=== PATIENT | male | born 1950 | race Caucasian/White ===

== ENCOUNTER 2020-05-12 10:20 | Outpatient (CLI) | payer OTHER, SELFPAY ==
--- NOTE | 2020-05-12 10:34 | XRR_ITS ---
PROCEDURE INFORMATION: Exam: XR Left Hip with Pelvis when Performed Exam date and time: 05/12/2020 11:26 AM Age: 69 years old Clinical indication: Hip pain; Left hip; Prior surgery; Additional info: L hip pain/oa TECHNIQUE: Imaging protocol: XR Left hip with pelvis when performed. Views: 2 or 3 views. COMPARISON: No relevant prior studies available. FINDINGS: Bones/joints: Unremarkable. No acute fracture. Soft tissues: Unremarkable. XR/XR hip LT 2-3V wo/w pel* [id number] IMPRESSION: No acute findings.
--- NOTE | 2020-05-12 10:34 | XRR_ITS ---
PROCEDURE INFORMATION: Exam: XR Left Knee Exam date and time: 05/12/2020 11:28 AM Age: 69 years old Clinical indication: Pain; Knee; Bilateral; Prior surgery; Additional info: Indra knee pain TECHNIQUE: Imaging protocol: XR Left knee. Views: 3 views. COMPARISON: No relevant prior studies available. FINDINGS: Bones/joints: There is no evidence for acute fracture or malalignment. Soft tissues: Normal. XR/XR knee LT 3V* [id number] IMPRESSION: No acute findings.
--- NOTE | 2020-05-12 10:34 | XRR_ITS ---
PROCEDURE INFORMATION: Exam: XR Right Knee Exam date and time: 05/12/2020 11:30 AM Age: 69 years old Clinical indication: Pain; Knee; Bilateral; Prior surgery; Additional info: Indra knee pain TECHNIQUE: Imaging protocol: XR Right knee. Views: 3 views. COMPARISON: No relevant prior studies available. FINDINGS: Bones/joints: There is no evidence for acute fracture or malalignment. Soft tissues: Normal. XR/XR knee RT 3V* [id number] IMPRESSION: No acute findings.
== END 2020-05-12 10:21 | disposition home or self-care (01) ==
LOC: RAD 10:28
PROVIDERS: Visit Provider Nurse Practitioner Family
DX: M25.561 Pain in right knee (principal); M25.562 Pain in left knee; M25.552 Pain in left hip
CPT/HCPCS: 73502; 73562

== ENCOUNTER → 2020-09-29 15:29 | Outpatient (BNVA) | payer OTHER, SELFPAY | PROVIDERS: Visit Provider Urology | DX: N13.8 Other obstructive and reflux uropathy (principal); N40.1 Benign prostatic hyperplasia with lower urinary tract symptoms; N39.9 Disorder of urinary system, unspecified; Z12.5 Encounter for screening for malignant neoplasm of prostate | CPT/HCPCS: 81003; G0103 ==

== ENCOUNTER 2021-04-12 07:39 | Outpatient (CLI) | payer OTHER, SELFPAY ==
--- NOTE | 2021-04-12 07:55 | XRR_ITS ---
PROCEDURE INFORMATION: Exam: XR Lumbosacral Spine Exam date and time: 04/12/2021 7:55 AM Age: 70 years old Clinical indication: Low back pain; Patient HX: Lower back pain from lt lateral side to center, and down to lt hip for a couple months; Additional info: L hip pain TECHNIQUE: Imaging protocol: XR of the lumbosacral spine. Views: 2 or 3 views. COMPARISON: CR XR hip LT 2-3V wo/w pel* [id number] 05/12/2020 11:23 AM FINDINGS: Bones/joints: No fracture or other acute bone or joint abnormalities are seen. Chronic degenerative changes are present with osteophyte formation, sclerosis and mild disc space narrowing. There is no significant malalignment. Soft tissues: Unremarkable. XR/XR lumbar spine 2-3V* [id number] IMPRESSION: Moderate DJD. No acute abnormality.
== END 2021-04-12 07:40 | disposition home or self-care (01) ==
LOC: RAD 07:50
PROVIDERS: Visit Provider Nurse Practitioner Family
DX: M25.552 Pain in left hip (principal); M47.816 Spondylosis without myelopathy or radiculopathy, lumbar region
CPT/HCPCS: 72100

== ENCOUNTER 2021-12-06 11:03 | Outpatient (CLI) | payer OTHER, SELFPAY ==
--- NOTE | 2021-12-06 11:44 | XRR_ITS ---
PROCEDURE INFORMATION: Exam: XR Left Ankle Exam date and time: 12/06/2021 11:44 AM Age: 71 years old Clinical indication: Pain and injury or trauma; Fall; Blunt trauma; Ankle; Left; Additional info: Pain L lower ext/fall TECHNIQUE: Imaging protocol: XR Left ankle. Views: 3 or more views. COMPARISON: CR XR knee LT 3V* [id number] 05/12/2020 11:26 AM FINDINGS: Bones/joints: Osseous structures are intact. Negative for fracture. Joint spaces are preserved. Soft tissues: Normal. XR/XR ankle LT min 3V* [id number] IMPRESSION: No acute findings.
--- NOTE | 2021-12-06 11:44 | XRR_ITS ---
PROCEDURE INFORMATION: Exam: XR Left Knee Exam date and time: 12/06/2021 11:44 AM Age: 71 years old Clinical indication: Pain and injury or trauma; Fall; Blunt trauma; Knee; Left; Additional info: Pain L lower ext/fall TECHNIQUE: Imaging protocol: XR Left knee. Views: 3 views. COMPARISON: CR XR knee LT 3V* [id number] 05/12/2020 11:26 AM FINDINGS: Bones/joints: Osseous structures are intact. Negative for fracture. Joint spaces are preserved. Soft tissues: Normal. XR/XR knee LT 3V* [id number] IMPRESSION: No acute findings.
--- NOTE | 2021-12-06 11:44 | XRR_ITS ---
PROCEDURE INFORMATION: Exam: XR Left Tibia and Fibula Exam date and time: 12/06/2021 11:44 AM Age: 71 years old Clinical indication: Pain and injury or trauma; Fall; Blunt trauma; Lower leg; Left; Additional info: Pain L lower ext/fall TECHNIQUE: Imaging protocol: XR Left tibia and fibula. Views: 2 views. COMPARISON: CR XR knee LT 3V* [id number] 05/12/2020 11:26 AM FINDINGS: Bones/joints: Tibia and fibula are intact. Negative for fracture. Soft tissues: Normal. XR/XR tibia fibula LT 2V [id number] IMPRESSION: No acute findings.
--- NOTE | 2021-12-06 11:44 | XRR_ITS ---
PROCEDURE INFORMATION: Exam: XR Left Foot Exam date and time: 12/06/2021 11:44 AM Age: 71 years old Clinical indication: Pain and injury or trauma; Fall; Blunt trauma; Foot; Left; Additional info: Pain L lower ext/fall TECHNIQUE: Imaging protocol: XR Left foot. Views: 3 or more views. COMPARISON: CR XR knee LT 3V* [id number] 05/12/2020 11:26 AM FINDINGS: Bones/joints: Osseous structures are intact. Negative for fracture. Joint spaces are preserved. Soft tissues: Normal. XR/XR foot LT min 3V* [id number] IMPRESSION: No acute findings.
== END 2021-12-06 11:04 | disposition home or self-care (01) ==
PROVIDERS: PCP Nurse Practitioner Family; Visit Provider Nurse Practitioner Family
DX: M79.662 Pain in left lower leg (principal); M25.562 Pain in left knee; W19.XXXA Unspecified fall, initial encounter
CPT/HCPCS: 73562; 73590; 73610; 73630

== ENCOUNTER 2021-12-15 11:29 | Emergency (ER) | payer OTHER, SELFPAY ==
[2021-12-15 11:30] VITALS: BP 83/51; PULSE 51; O2SAT 94; BMI 25.1
[2021-12-15 11:38] VITALS: BP 83/51; PULSE 50; RESP 16; O2SAT 95
--- NOTE | 2021-12-15 11:38 | ECG_ITS ---
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 Measurements Intervals [place] Rate: 48 P: 34 SC: 236 QRS: 10 QRSD: 90 T: 47 QT: 465 QTc: 417 Interpretive Statements SINUS BRADYCARDIA WITH FIRST DEGREE AV BLOCK WARNING: DATA QUALITY MAY AFFECT INTERPRETATION No previous ECG available for comparison Electronically Signed On 12-15-2021 21:48:00 CDT by Rossi Rojas M.D. [id number]
--- NOTE | 2021-12-15 11:56 | CTR_ITS ---
PROCEDURE INFORMATION: Exam: CT Angiography Head With Contrast, Arteriography Exam date and time: 12/15/2021 2:17 PM Age: 71 years old Clinical indication: Syncope and collapse TECHNIQUE: Imaging protocol: Computed tomography angiography of the head with contrast. Exam focused on the arteries. 3D rendering (Not supervised by radiologist): MIP and/or 3D reconstructed images were created by the technologist. Radiation optimization: All CT scans at this facility use at least one of these dose optimization techniques: automated exposure control; mA and/or kV adjustment per patient size (includes targeted exams where dose is matched to clinical indication); or iterative reconstruction. Contrast material: OMNI 350; Contrast volume: 95 ml; Contrast route: INTRAVENOUS (IV); COMPARISON: CT head wo con* [id number] 12/15/2021 2:14 PM RADIATION DOSE METRICS: Total DLP (mGy-cm): 2298.99 FINDINGS: ANTERIOR CIRCULATION: Right internal carotid artery: Unremarkable. Intracranial segment is patent with no significant stenosis. No aneurysm. Right middle cerebral artery: Unremarkable. No occlusion or significant stenosis. No aneurysm. Right anterior cerebral artery: Unremarkable. No occlusion or significant stenosis. No aneurysm. Left internal carotid artery: Unremarkable. Intracranial segment is patent with no significant stenosis. No aneurysm. Left middle cerebral artery: Unremarkable. No occlusion or significant stenosis. No aneurysm. Left anterior cerebral artery: Unremarkable. No occlusion or significant stenosis. No aneurysm. POSTERIOR CIRCULATION: Right vertebral artery: Unremarkable. No occlusion or significant stenosis. No aneurysm. Left vertebral artery: Unremarkable. No occlusion or significant stenosis. No aneurysm. Basilar artery: Unremarkable. No occlusion or significant stenosis. No aneurysm. Right posterior cerebral artery: Unremarkable. No occlusion or significant stenosis. No aneurysm. Left posterior cerebral artery: Unremarkable. No occlusion or significant stenosis. No aneurysm. Brain: See head CT Cerebral ventricles: No ventriculomegaly. Bones/joints: Unremarkable. No acute fracture. Soft tissues: Unremarkable. PROCEDURE INFORMATION: Exam: CT Angiography Neck With Contrast Exam date and time: 12/15/2021 2:17 PM Age: 71 years old Clinical indication: Syncope and collapse TECHNIQUE: Imaging protocol: Computed tomography angiography of the neck with contrast. 3D rendering (Not supervised by radiologist): MIP and/or 3D reconstructed images were created by the technologist. Radiation optimization: All CT scans at this facility use at least one of these dose optimization techniques: automated exposure control; mA and/or kV adjustment per patient size (includes targeted exams where dose is matched to clinical indication); or iterative reconstruction. Contrast material: OMNI 350; Contrast volume: 95 ml; Contrast route: INTRAVENOUS (IV); COMPARISON: CT head wo con* [id number] 12/15/2021 2:14 PM RADIATION DOSE METRICS: Total DLP (mGy-cm): 2298.99 FINDINGS: Right common carotid artery: No stenosis. No dissection or occlusion. Right internal carotid artery: No stenosis of the extracranial segment. No dissection or occlusion. Right external carotid artery: No occlusion or stenosis of the origin. Left common carotid artery: No stenosis. No dissection or occlusion. Left internal carotid artery: No stenosis of the extracranial segment. No dissection or occlusion. Left external carotid artery: No occlusion or stenosis of the origin. Right vertebral artery: No stenosis. No dissection or occlusion. Left vertebral artery: No stenosis. No dissection or occlusion. Soft tissues: Normal. No significant soft tissue swelling. Bones/joints: There is spondylosis and disc space narrowing from C4-C5 to C6 No acute fracture. CT/CT angio headneck* [id number] IMPRESSION: No intracranial stenosis or occlusion IMPRESSION: No carotid or vertebral artery stenosis REFERENCES: NASCET CRITERIA. The degree of internal carotid artery stenosis is based on NASCET criteria. Normal is no stenosis. Mild is less than 50% stenosis. Moderate is 50-69% stenosis. Severe is 70% to 99% stenosis. Total occlusion is no detectable patent lumen.
--- NOTE | 2021-12-15 11:57 | W.ED.GENADLT ---
HPI - General Adult General: Chief complaint: Syncope Stated complaint: SYNCOPE Time Seen by Provider: 12/15/21 11:38 History of Present Illness: Patient is a 71-year-old male with no known past medical history presents to the emergency after 2 episodes of syncope. Patient was getting his haircut in the barbershop sitting down when he suddenly passed out. No falls but patient has had another episode there. Patient denied any chest pain, shortness breath, palpitation, focal neurological weakness, facial droop prior to the episode of passing out. Patient never had syncope before. Patient denies any palpitation or lightheadedness, nausea/vomiting, diarrhea. Patient has no urinary complaints. No complaints fever/chills, cough, runny nose, or sore throat. Onset: 1 hr ago Duration:twice Location: [facility] Severity: moderate Associated symptoms: Deny chest pain, dyspnea, nausea, rash, palpitations or vomiting Review of Systems Const: Denies: fever(s) or chills Eyes: Denies: change in vision ENMT: Denies: mouth pain Card: Denies: chest pain or palpitations Resp: Denies: dyspnea or non-productive cough GI: Denies: abdominal pain, nausea, vomiting or diarrhea : Denies: dysuria Musc: Denies: extremity pain Skin/Breast: Denies: rash or new lesions Neuro: Denies: weakness in extremities Psych: Reports: other (Normal mood) Chuck/Lymph: Denies: easy bruising [facility] ED PFSH: Medical History (Updated 12/15/21 @ 15:21 by Rayna Rodriguez MD) BPH with obstruction/lower urinary tract symptoms History of recurrent UTI (urinary tract infection) Syncope Family History Father , AT AGE 86 UNKNOWN CAUSE No problems noted. Social History Smoking and tobacco status: never smoked Alcohol intake: never Adopted: No Caregiver/support person: No Lives independently: No Household members: spouse Marital status: Current occupational status: employed History of recent travel: No Current gender identity: Male Physical Exam Const: COMMON NORMALS: alert HENMT: COMMON NORMALS: atraumatic HEAD & SCALP: atraumatic MOUTH: moist mucous membranes not abnormal Eye: COMMON NORMALS: EOMs intact bilaterally and conjunctivae normal CONJUNCTIVA: Yes conjunctivae normal Neck/C-Spine: COMMON NORMALS: full ROM and supple Resp: COMMON NORMALS: normal respiratory effort and clear to auscultation bilaterally AUSCULTATION: clear to auscultation bilaterally Cardio: COMMON NORMALS: regular rate RATE: regular rate GI: COMMON NORMALS: Soft to palpation and non-tender PALPATION: Yes Soft to palpation Extremity: COMMON NORMALS: full ROM Neuro: SENSORIUM/ORIENTATION: Yes alert MOTOR EXAM: No Abnormal motor strength present and Other motor observations present (no focal motor deficits) OTHER: Mental status? Awake, alert, and oriented to self, year, month, location, and situation.? Following simple axial and appendicular commands.? Has appropriate fund of knowledge, comprehension, and insight.? Able to recall and understands pertinent aspects of medical history and current treatment status.? ? Language? Speech is fluent without word-finding difficulties.? Intact naming, expression, information receptionist, and repetition.? ? Cranial nerves? 2,3,4,6: PERRL, EOMI with no nystagmus. 5: Intact sensation to light touch, symmetric? 7: Smile symmetrical, no facial droop.? 8: Hearing grossly intact.? 9,10: Normal palate movement.? 11: Normal strength in trapezius bilaterally 12: Tongue protrudes midline.? ? Motor examination? Normal bulk & tone. Strength as follows (R/L): Delts (5/5), Biceps (5/5), Triceps (5/5), Wrist ext (5/5), hip flexors (5/5), plantarflexors (5/5), dorsiflexors (5/5). ? Sensation? Light Touch: Grossly intact and equal in upper and lower extremities bilaterally? Romberg: Negative.? Distal joint position sense intact ? Coordination? Gdkpna-wl-veda-finger movements intact without dysmetria or past-pointing.? Rapid fingertaps: preserved amplitude without decriment.? No tremor, myoclonus or truncal ataxia.? ? Gait/stance? Steady, normal narrow base gait with appropriate arm swing and turning.? Tandem gait without hesitation or loss of balance. Psych: COMMON NORMALS: speech normal SPEECH: Yes normal speech MOOD & AFFECT: Yes euthymic mood Course Vital Signs: Vital signs: Vital Signs Pulse Rate 64 12/15/21 16:12 Respiratory Rate 17 12/15/21 16:12 Blood Pressure 116/70 12/15/21 16:12 Pulse Oximetry 96 12/15/21 16:12 [facility] - General Adult Medical Decision Making 71-year-old male with no known past medical history presented to emergency room with 2 episodes of recurrent syncope. On arrival, patient is AAO x3, GCS 15, neuro exam is intact. Hemodynamically stable Work-up: CBC, BMP, troponin x2, EKG x2, CT head/CTA head & neck Intervention: IVF, athletic monitor, serial observation Troponin x2 within normal limit. CT head negative for any acute mass. CTA head and neck negative for dissection or or other acute neurological causes for syncope. While observed in the emergency room, patient not have any signs of dysrhythmia on the monitor. Patient has no signs of PVC. Patient received IVF in the emergency room reports feeling symptomatically improved. Patient has no lightheadedness or syncope upon standing today. Patient tolerated p.o. without any difficulty. Delta troponin <4. I performed shared decision-making with patient regarding admission versus discharge today, and patient prefers to be discharged. At 3:15pm, I have discussed concern that given patient's age and two episodes of syncope at rest, that he would better off getting admitted for telemetry and full evaluation of syncope. Upon hearing this, patient elects to go home with close follow up with Cardiology. I explained the risks of leaving the hospital today including lethal arrythemia, UT, strokes and even . Patient verbalizes understanding of these discussed risk and elect for the alternative of following up earlier next week for evaluation by Cardiology. Patient verbalizes understanding to return for any worsening symptoms including light-headedness, further syncope episodes, chest pain, dyspnea, fatigue, arm pain/jaw pain/back pain or any new or concerning issues. Patient is currently HDS, ambulated without any difficulties. Today's presentation is not consistent with abdominal aortic aneurysm since patient does not have any abdominal pain and appropriate risk factors. I do not suspect an acute PE patient does not hypoxic or tachycardic or with and without any complaints of chest pain. I suspect the patient's symptoms are likely vasovagal. No suspicion for sepsis, meningitis, hemorrhagic shock or other causes for presentation today. I called Dr. Vasquez at 3:20 PM and discussed this case. Dr. Vasquez recommended setting patient up for outpatient athletic monitor/event study. Dr. Vasquez will see patient next week in clinic for further evaluation of symptoms. I have given patient follow up with our machine adjuster leader case trim to be seen by our outpatient Dr. Vasquez for close follow up for syncope. Patient aware of a call from our machine adjuster leader case trim to schedule for appointment(s) and verbalizes understanding of the importance of following up. Disposition: Discharge. Patient counseled regarding diagnostic impression, treatment plan. Patient given ED strict return precautions to return for continuation, worsening, or development of new symptoms. Instructed to f/u w/ Dr. Vasquez next week regarding symptoms today. Patient verbalized understanding. Lab Data : 12/15/21 13:05 12/15/21 13:[address] 12/15/21 11:56 IMPRESSION: No intracranial lesion or injury Head/Neck CTA 12/15/21 11:56 IMPRESSION: No intracranial stenosis or occlusion IMPRESSION: No carotid or vertebral artery stenosis REFERENCES: NASCET CRITERIA. The degree of internal carotid artery stenosis is based on NASCET criteria. Normal is no stenosis. Mild is less than 50% stenosis. Moderate is 50-69% stenosis. Severe is 70% to 99% stenosis. Total occlusion is no detectable patent lumen. Laboratory Results WBC 9.0 10^3/uL (4.0-10.0) 12/15/21 13:05 RBC 4.48 10^6/uL (4.1-5.3) 12/15/21 13:05 Hgb 13.4 g/dL (11.7-16.6) 12/15/21 13:05 Hct 39.8 % (42.0-52.0) L 12/15/21 13:05 MCV 88.8 fl (80-94) 12/15/21 13:05 MCH 29.9 pg (28.0-34.0) 12/15/21 13:05 MCHC 33.7 g/dL (30.0-36.0) 12/15/21 13:05 RDW 12.4 % (12.1-15.1) 12/15/21 13:05 Plt Count 198 10^3/cmm (130-400) 12/15/21 13:05 MPV 9.2 fL (7.4-10.4) 12/15/21 13:05 Neut % (Auto) 86.7 % 12/15/21 13:05 Lymph % (Auto) 5.1 % 12/15/21 13:05 [place] % (Auto) 7.2 % 12/15/21 13:05 Eos % (Auto) 0.4 % 12/15/21 13:05 Baso % (Auto) 0.2 % 12/15/21 13:05 Neut # (Auto) 7.78 10^3/uL (1.8-7.7) H 12/15/21 13:05 Lymph # (Auto) 0.5 10^3/uL (0.8-4.8) L 12/15/21 13:05 [place] # (Auto) 0.7 10^3/uL (0.2-0.9) 12/15/21 13:05 Eos # (Auto) 0.0 10^3/uL (0.0-0.8) 12/15/21 13:05 Baso # (Auto) 0.0 10^3/uL (0.0-0.1) 12/15/21 13:05 Nucleated RBC % (auto) 0 % 12/15/21 13:05 Nucleated RBCs # 0.0 /100WBC 12/15/21 13:05 Sodium 140 mmol/L (136-145) 12/15/21 13:05 Potassium 3.8 mmol/L (3.5-5.1) 12/15/21 13:05 Chloride 106 mmol/L (98-107) 12/15/21 13:05 Carbon Dioxide 24 mmol/L (22-29) 12/15/21 13:05 Anion Gap 13.8 (5-19) 12/15/21 13:05 BUN 20 mg/dL (8-23) 12/15/21 13:05 Creatinine 0.8 mg/dL (0.7-1.2) 12/15/21 13:05 GFR Calculation 95.6 mL/min (90-130) 12/15/21 13:05 Glucose 97 mg/dL (65-115) 12/15/21 13:05 Calculated Osmolality 293 mOsm/kg (285-295) 12/15/21 13:05 Calcium 8.7 mg/dL (8.5-10.5) 12/15/21 13:05 Troponin T Baseline 6 ng/L (0-15) 12/15/21 13:05 Troponin T 120 Minute 6.57 ng/L (0-15) 12/15/21 14:58 Delta Troponin T 0.57 ABS# (0-10) 12/15/21 14:58 Imaging Data Other Imaging: Radiologist's impression: [facility] [address] [address] Scan Report Signed Patient: Christian Berger Unit #: [id number] : 1950 Age/Sex: 71 / M ADM Date: 12/15/21 Loc: ER Room/Bed: Attending Dr: Ordering Provider/Ordering MD: Rayna Rodriguez MD Date of Service: 12/15/21 Procedure(s): CT angio headneck* [id number] Accession Number(s): [id number] Report Number: [id number] PROCEDURE INFORMATION: Exam: CT Angiography Head With Contrast, Arteriography Exam date and time: 12/15/2021 2:17 PM Age: 71 years old Clinical indication: Syncope and collapse TECHNIQUE: Imaging protocol: Computed tomography angiography of the head with contrast. Exam focused on the arteries. 3D rendering (Not supervised by radiologist): MIP and/or 3D reconstructed images were created by the technologist. Radiation optimization: All CT scans at this facility use at least one of these dose optimization techniques: automated exposure control; mA and/or kV adjustment per patient size (includes targeted exams where dose is matched to clinical indication); or iterative reconstruction. Contrast material: OMNI 350; Contrast volume: 95 ml; Contrast route: INTRAVENOUS (IV);? COMPARISON: CT head wo con* [id number] 12/15/2021 2:14 PM RADIATION DOSE METRICS: Total DLP (mGy-cm): 2298.99 FINDINGS: ANTERIOR CIRCULATION: Right internal carotid artery: Unremarkable. Intracranial segment is patent with no significant stenosis. No aneurysm. Right middle cerebral artery: Unremarkable. No occlusion or significant stenosis. No aneurysm.? Right anterior cerebral artery: Unremarkable. No occlusion or significant stenosis. No aneurysm.? Left internal carotid artery: Unremarkable. Intracranial segment is patent with no significant stenosis. No aneurysm. Left middle cerebral artery: Unremarkable. No occlusion or significant stenosis. No aneurysm.? Left anterior cerebral artery: Unremarkable. No occlusion or significant stenosis. No aneurysm.? POSTERIOR CIRCULATION: Right vertebral artery: Unremarkable. No occlusion or significant stenosis. No aneurysm.? Left vertebral artery: Unremarkable. No occlusion or significant stenosis. No aneurysm.? Basilar artery: Unremarkable. No occlusion or significant stenosis. No aneurysm. Right posterior cerebral artery: Unremarkable. No occlusion or significant stenosis. No aneurysm.? Left posterior cerebral artery: Unremarkable. No occlusion or significant stenosis. No aneurysm.? Brain: See head CT Cerebral ventricles: No ventriculomegaly. Bones/joints: Unremarkable. No acute fracture. Soft tissues: Unremarkable. PROCEDURE INFORMATION: Exam: CT Angiography Neck With Contrast Exam date and time: 12/15/2021 2:17 PM Age: 71 years old Clinical indication: Syncope and collapse TECHNIQUE: Imaging protocol: Computed tomography angiography of the neck with contrast. 3D rendering (Not supervised by radiologist): MIP and/or 3D reconstructed images were created by the technologist. Radiation optimization: All CT scans at this facility use at least one of these dose optimization techniques: automated exposure control; mA and/or kV adjustment per patient size (includes targeted exams where dose is matched to clinical indication); or iterative reconstruction. Contrast material: OMNI 350; Contrast volume: 95 ml; Contrast route: INTRAVENOUS (IV);? COMPARISON: CT head wo con* [id number] 12/15/2021 2:14 PM RADIATION DOSE METRICS: Total DLP (mGy-cm): 2298.99 FINDINGS: Right common carotid artery: No stenosis. No dissection or occlusion. Right internal carotid artery: No stenosis of the extracranial segment. No dissection or occlusion. Right external carotid artery: No occlusion or stenosis of the origin.? Left common carotid artery: No stenosis. No dissection or occlusion. Left internal carotid artery: No stenosis of the extracranial segment. No dissection or occlusion. Left external carotid artery: No occlusion or stenosis of the origin.? Right vertebral artery: No stenosis. No dissection or occlusion. Left vertebral artery: No stenosis. No dissection or occlusion. Soft tissues: Normal. No significant soft tissue swelling. Bones/joints: There is spondylosis and disc space narrowing from C4-C5 to C6 No acute fracture. CT/CT angio headneck* [id number] IMPRESSION: No intracranial stenosis or occlusion ? ? IMPRESSION: No carotid or vertebral artery stenosis ? REFERENCES: NASCET CRITERIA. The degree of internal carotid artery stenosis is based on NASCET criteria. Normal is no stenosis. Mild is less than 50% stenosis. Moderate is 50-69% stenosis. Severe is 70% to 99% stenosis. Total occlusion is no detectable patent lumen. ? Dictated By: Raghav Jacobsen MD Signed By: Raghav Jacobsen MD Signed Date/Time: 12/15/21 1456 DD/ [address] [place] [address] CT Scan Report Signed Patient: Christian Berger Unit #: [id number] : 1950 Age/Sex: 71 / M ADM Date: 12/15/21 Loc: ER Room/Bed: Attending Dr: Ordering Provider/Ordering MD: Rayna Rodriguez MD Date of Service: 12/15/21 Procedure(s): CT head wo [facility]* [id number] Accession Number(s): [id number] Report Number: [id number] PROCEDURE INFORMATION: Exam: CT Head Without Contrast Exam date and time: 12/15/2021 2:14 PM Age: 71 years old Clinical indication: Syncope and collapse TECHNIQUE: Imaging protocol: Computed tomography of the head without contrast. Radiation optimization: All CT scans at this facility use at least one of these dose optimization techniques: automated exposure control; mA and/or kV adjustment per patient size (includes targeted exams where dose is matched to clinical indication); or iterative reconstruction. COMPARISON: No relevant prior studies available. RADIATION DOSE METRICS: Total DLP (mGy-cm): 940.1 FINDINGS: Brain: There is no evidence of infarct, jaramillo-white matter differentiation is preserved. There is no hemorrhage or extra-axial collection. There is no mass. Cerebral ventricles: There is no hydrocephalus. Paranasal sinuses: Visualized sinuses are unremarkable. No fluid levels. Mastoid air cells: Visualized mastoid air cells are well aerated. Bones/joints: Unremarkable. No acute fracture. Soft tissues: Unremarkable. CT/CT head wo con* [id number] IMPRESSION: No intracranial lesion or injury ? Dictated By: Raghav Jacobsen MD Signed By: Raghav Jacobsen MD Signed Date/Time: 12/15/21 1450 DD/ 1414 Discharge Plan Discharge Patient Disposition: Home Clinical Impression: Syncope and collapse Condition: Stable Prescriptions: No Action Immune Plus Gummies 2 cap PO DAILY 0RF alfuzosin 10 mg tablet extended release 24 hr 10 mg PO QAM 0RF ibuprofen 800 mg tablet 800 mg PO TID PRN (Reason: Pain) 0RF Discharge Orders: Discharge ED (Routine); Ordered 12/15/21 Ordered By: Rayna Rodriguez Other Ambulatory Orders: ECG holter monitor 14 Days (Routine) Timeframe: 2 Weeks Facility: [facility] - Location: Radiology Ordered By: Rayna Rodriguez Referrals: Lin,Delilah, FINANCIAL COST ANALYST [Primary Care Provider] - Discharge Diet: Advance as tolerated Discharge Activity: Increase activity as tolerated Patient Instructions: Syncope (ED) Activity Restrictions/Additional Instructions: Please come back to the emergency room for any more breakthrough episodes of passing out. Come back if any weakness in her arms, drooling, difficulty speaking, any neurological symptoms, chest pain/shortness of breath/palpitation or any new or concerning issues. Please do not swim, bathe, operate heavy machinery or drive a vehicle unattended. Our machine adjuster leader case trim will have you follow-up with Dr. Vasquez's office in the next few days. You would be expected to have a phone call with our machine adjuster leader case trim who will put you on the schedule. You can expect a call from us in the next 2-3 days. If you don't hear from us, call us back in the emergency room at [phone]. Please wear your holter as instructed. Coding Level of Care Code ED Nurse Researcher for [facility] Exam Comprehensive
--- NOTE | 2021-12-15 12:25 | PC.PHAR ---
pt states he takes care of his own medications-pt has a rx on hold for ultram 50mg 1-2 tabs po q4h prn pain from 12/06/21 from [facility] pt states he didnt picker because he didnt need it-
[2021-12-15 13:24] LABS: Basophils % 0.2 %; Eosinophils % 0.4 %; Hematocrit 39.8 % (42.0-52.0); Hemoglobin 13.4 g/dL (11.7-16.6); Lymphocytes # 0.5 10^3/uL (0.8-4.8); Lymphocytes % 5.1 %; Mean Corpuscular HGB Conc 33.7 g/dL (30.0-36.0); Mean Corpuscular Hemoglobin 29.9 pg (28.0-34.0); Mean Corpuscular Volume 88.8 fl (80-94); Mean Platelet Volume 9.2 fL (7.4-10.4); Monocytes # 0.7 10^3/uL (0.2-0.9); Monocytes % 7.2 %; Neutrophils # 7.78 10^3/uL (1.8-7.7); Neutrophils % 86.7 %; Nucleated Red Blood Cells % 0 %; Platelet Count 198 10^3/cmm (130-400); Red Blood Count 4.48 10^6/uL (4.1-5.3); Red Cell Distribution Width 12.4 % (12.1-15.1)
--- NOTE | 2021-12-15 13:38 | ECG_ITS ---
[facility] Test Date: 2021-12-15 Pat Name: Christian Berger Department: Room: Gender: Male Dancer Or Choreographer: : 1950 Requested By: Rayna Rodriguez Order Number: [id number] Shaggy MD: Rossi Rjoas M.D. Measurements Intervals [place] Rate: 61 P: 42 OR: 215 QRS: 18 QRSD: 102 T: 55 QT: 443 QTc: 447 Interpretive Statements SINUS RHYTHM WITH FIRST DEGREE AV BLOCK Compared to ECG 12/15/2021 10:54:27 Sinus bradycardia no longer present Electronically Signed On 12-15-2021 22:04:44 CDT by Rossi Rojas M.D. [email or web address]
[2021-12-15 13:57] LABS: Anion Gap 13.8 (5-19); Blood Urea Nitrogen 20 mg/dL (8-23); Calcium 8.7 mg/dL (8.5-10.5); Carbon Dioxide 24 mmol/L (22-29); Chloride 106 mmol/L (98-107); Creatinine Clr Calc Pharmacy 94.5958; Glomerular Filtration Rate 95.6 mL/min (90-130); Glucose 97 mg/dL (65-115); Osmolality Calculated 293 mOsm/kg (285-295); Potassium 3.8 mmol/L (3.5-5.1); Sodium 140 mmol/L (136-145)
[2021-12-15 14:01] LABS: Troponin(5th) Baseline 6 ng/L (0-15)
[2021-12-15] MEDS: iohexol 350 mg/mL 100 mL Btl IV (14:23)
[2021-12-15] MEDS: sodium chloride 0.9% 1,000 ML 999 ML IV (14:29)
[2021-12-15 14:47] VITALS: BP 113/73; PULSE 62; RESP 17
[2021-12-15 15:14] VITALS: BP 129/57; PULSE 64; RESP 19; O2SAT 96
[2021-12-15 15:31] LABS: Troponin 5 2HR 6.57 ng/L (0-15)
[2021-12-15 16:05] LABS: Troponin 5 2HR Delta 0.57 ABS# (0-10)
[2021-12-15 16:12] VITALS: BP 116/70; PULSE 64; RESP 17; O2SAT 96
--- NOTE | 2021-12-15 16:57 | DCPLANNER ---
Addendum entered by Barbie Lincoln 02/24/22 18:30: Patient had two appointments scheduled with [facility] - both appointments were cancelled. Addendum entered by Barbie Lincoln 12/20/21 08:12: Patient called [facility] and rescheduled his appointment due another appointment. Patients appointment was rescheduled for Tuesday, February 08, 2022 at 1:[address] Cartagena. Patient has another appointment scheduled for November at 11:00 at [facility] for a 14 day event monitor. Clinic will call patient with appointment information. Addendum entered by Barbie Lincoln 12/19/21 08:06: Patient has a follow up appointment scheduled for Thursday, December 23, 2021 at 8:[address] Cartagena at [facility]. cargo and ramp services manager called patient and gave patient the appointment information. Addendum entered by Barbie Lincoln 12/15/21 17:09: cargo and ramp services manager also had message to schedule a follow up appointment for patient with Dr. Cartagena for next week. cargo and ramp services manager emailed patients information to both Jazmine Whitaker and Jazmine Tapia at the [facility]. Patients information will be printed and reviewed. Clinic will call patient with both appointments. Original Note: cargo and ramp services manager had message to schedule a follow up appointment for patient at [facility] for a 30 day event monitor. cargo and ramp services manager faxed signed order to [facility], who will call patient with appointment information.
== END 2021-12-15 16:10 | disposition home or self-care (01) ==
PROVIDERS: Emergency Provider Emergency Medicine; PCP Nurse Practitioner Family
DX: R55 Syncope and collapse (principal)
CPT/HCPCS: 70450; 70496; 70498; 80048; 84484; 85025; 93005; 96360; 99283; J7030; Q9967

== ENCOUNTER 2022-05-06 10:50 | Emergency (ER) | payer OTHER, SELFPAY ==
[2022-05-06 10:53] VITALS: BP 138/84; PULSE 56; RESP 16; TEMP 36.6; O2SAT 93; BMI 25.7
--- NOTE | 2022-05-06 10:56 | XRR_ITS ---
PROCEDURE INFORMATION: Exam: XR Lumbosacral Spine Exam date and time: 05/06/2022 11:39 AM Age: 71 years old Clinical indication: Patient HX: Low back pain/left hip pain TECHNIQUE: Imaging protocol: Radiologic exam of the lumbosacral spine. Views: 2 or 3 views. COMPARISON: CR XR lumbar spine 2-3V* [id number] 04/12/2021 8:04 AM FINDINGS: Bones/joints: Normal. No acute fracture. Normal alignment. Soft tissues: Cholelithiasis is seen with multiple small gallstones. XR/XR lumbar spine 2-3V* [id number] IMPRESSION: No acute bone abnormality. Cholelithiasis
--- NOTE | 2022-05-06 10:56 | XRR_ITS ---
PROCEDURE INFORMATION: Exam: XR Left Hip Exam date and time: 05/06/2022 11:39 AM Age: 71 years old Clinical indication: Patient HX: Low back pain/left hip pain TECHNIQUE: Imaging protocol: Radiologic exam of the Left hip. Views: 2 or 3 views hip with pelvis when performed. COMPARISON: CR XR hip LT 2-3V wo/w pel* [id number] 05/12/2020 11:23 AM FINDINGS: Bones/joints: Unremarkable. No acute fracture. Soft tissues: Unremarkable. XR/XR hip LT 2-3V wo/w pel* [id number] IMPRESSION: No acute findings.
[2022-05-06 11:00] VITALS: BP 138/84; PULSE 56; RESP 16; TEMP 36.6; O2SAT 93
[2022-05-06] MEDS: ketorolac 30 mg/mL INJ IVP (11:23)
[2022-05-06] MEDS: dexamethasone 10 mg/mL INJ IVP (11:25)
[2022-05-06] MEDS: morphine 4 mg/mL SDV 1 mL IVP (11:25)
[2022-05-06] MEDS: orphenadrine 30 mg/mL Inj 2 mL 60 MG IVP (11:27)
[2022-05-06 12:28] VITALS: PULSE 60; RESP 16; O2SAT 97
--- NOTE | 2022-05-06 13:03 | W.ED.EXTPRO ---
HPI - Extremity Problem General: Chief complaint: Extremity Injury, Lower Stated complaint: LEFT HIP/LOW BACK PAIN Time Seen by Provider: 05/06/22 10:51 Source: patient Mode of arrival: ambulatory History of Present Illness: 71-year-old male presents emergency room with complaints of back pain. Pain is back pain with pain radiating into his left hip. He states he got hit by a tree branch last week he been up and ambulatory since then but then he started having more back pain again. Not previously had any advanced imaging of his back. Pain radiates from his back down his leg. Its been exquisitely painful earlier this week he did receive steroid injection seemed to help for a couple of days notes worsening and is not been taking any steroid taper he did get some tramadol as well as help to some extent until this morning. No fecal incontinence urinary retention MD Complaint: extremity pain Onset (ago): week(s) Pain Consistency: constant Location: left and lower extremity Radiation: distal Relieving factors: rest Exacerbating factors: weight bearing and walking Associated symptoms: Deny chest pain, fever(s) or rash Review of Systems Const: Denies: fever(s), chills, body aches, change in appetite, fatigue or malaise ENMT: Denies: throat pain, ear or mastoid pain, nasal discharge or nasal congestion Card: Denies: chest pain, edema, dyspnea on exertion or orthopnea Resp: Denies: dyspnea, productive cough or non-productive cough GI: Denies: abdominal pain, nausea, vomiting, hematemesis, coffee ground emesis, diarrhea, constipation, bloating, hematochezia or melena : Denies: flank pain, difficulty urinating, dysuria, urinary frequency or urinary urgency Musc: Reports: back pain and extremity pain Skin/Breast: Denies: rash or pruritus PFSH ED PFSH: Medical History BPH with obstruction/lower urinary tract symptoms History of recurrent UTI (urinary tract infection) Syncope Family History Father , AT AGE 86 UNKNOWN CAUSE No problems noted. Social History Smoking and tobacco status: never smoked Alcohol intake: never Adopted: No Caregiver/support person: No Lives independently: No Household members: spouse Marital status: Current occupational status: employed History of recent travel: No Current gender identity: Male Physical Exam Const: COMMON NORMALS: no acute distress GENERAL APPEARANCE: cooperative and comfortable ORIENTATION/CONSCIOUSNESS: Yes awake, Yes oriented to person, Yes oriented to place and Yes oriented to time HENMT: COMMON NORMALS: normocephalic, atraumatic and hearing grossly normal bilaterally HEAD & SCALP: normocephalic and atraumatic Resp: COMMON NORMALS: normal respiratory effort, No retractions, No use of accessory muscles and clear to auscultation bilaterally AUSCULTATION: clear to auscultation bilaterally Cardio: COMMON NORMALS: regular rate, regular rhythm and No murmurs present (Cardio) RATE: regular rate RHYTHM: regular rhythm GI: COMMON NORMALS: Soft to palpation and No hepatosplenomegaly present AUSCULTATION: Yes normoactive bowel sounds PALPATION: Yes Soft to palpation, No Tenderness to palpation present (GI), No Guarding due to palpation present (GI) and Yes No hepatosplenomegaly present Extremity: COMMON NORMALS: normal to inspection, capillary refill normal, no clubbing, cyanosis or edema, no calf tenderness and no pedal edema Neuro: SENSORIUM/ORIENTATION: Yes oriented to person, Yes oriented to place and Yes oriented to time MOTOR EXAM: 5/5 motor strength present throughout DEEP TENDON REFLEXES: Right brachioradialis reflex intensity grade: 2+ and Right patellar reflex intensity grade: 2+ Skin: COMMON NORMALS: no rashes or lesions noted GENERAL SKIN EXAM: no rashes or lesions noted Course Vital Signs: Vital signs: Vital Signs Temperature 97.9 F 05/06/22 11:00 Pulse Rate 60 05/06/22 12:28 Respiratory Rate 16 05/06/22 12:28 Blood Pressure 138/84 05/06/22 11:00 Pulse Oximetry 97 05/06/22 12:28 Oxygen Delivery Me thod 05/06/22 11:00 MDM - Extremity (Nontraumatic) Medical Decision Making Also displaced L5-S1. Patient's pain is improved with medications given here will discharge home with steroid taper and narcotics as well as muscle relaxer follow-up with primary care. Advanced imaging. Medical Records I reviewed the patient's medical records. Lab Data I reviewed the patient's lab results. Radiology Impressions Hip/Pelvis X-Ray 05/06/22 10:56 IMPRESSION: No acute findings. Lumbar Spine X-Ray 05/06/22 10:56 IMPRESSION: No acute bone abnormality. Cholelithiasis Discharge Plan Discharge Patient Disposition: Home Clinical Impression: Back pain Condition: Stable Prescriptions: New diclofenac sodium 75 mg tablet,delayed release (DR/EC) 75 mg PO Q12H PRN (Reason: pain) Qty: 20 0RF tizanidine 4 mg capsule 4 mg PO TID PRN (Reason: muscle spasticity) Qty: 20 0RF prednisone 20 mg tablet 20 mg PO TID Qty: 15 0RF Rx Instructions: 1 p.o. 3 times daily x3 days, 1 p.o. twice daily x2 days, 1 p.o. daily x2 days No Action Immune Plus Gummies 2 cap PO DAILY alfuzosin 10 mg tablet extended release 24 hr 10 mg PO QAM ibuprofen 800 mg tablet 800 mg PO TID PRN (Reason: Pain) Discharge Orders: Discharge ED (Routine); Ordered 05/06/22 Ordered By: Sai Bains Referrals: Delilah Lin APN [Primary Care Provider] - Patient Instructions: Opioid Safety Activity Restrictions/Additional Instructions: Use tramadol you are prescribed yesterday as well as the steroids you were given today anti-inflammatory muscle relaxer. Start the steroid taper tomorrow. Follow-up with your primary care doctor to reevaluate next week. If symptoms persist and you may need to be reevaluated for advanced imaging. 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
== END 2022-05-06 12:37 | disposition home or self-care (01) ==
PROVIDERS: Emergency Provider Family Medicine; PCP Nurse Practitioner Family
DX: M54.50 Low back pain, unspecified (principal)
CPT/HCPCS: 72100; 73502; 96374; 96375; 99284; J1100; J1885; J2270; J2360

== ENCOUNTER 2022-05-15 10:48 | Emergency (ER) | payer OTHER, SELFPAY ==
[2022-05-15 11:11] VITALS: BP 96/56; PULSE 79; RESP 18; TEMP 36.4; O2SAT 96; BMI 25.7
--- NOTE | 2022-05-15 11:41 | XRR_ITS ---
PROCEDURE INFORMATION: Exam: XR Left Hip Exam date and time: 05/15/2022 11:57 AM Age: 71 years old Clinical indication: Pain and injury or trauma; Other: Not specified; Blunt trauma (contusions or hematomas); Hip pain; Left hip; Additional info: Injury/pain TECHNIQUE: Imaging protocol: Radiologic exam of the Left hip. Views: 2 or 3 views hip with pelvis when performed. COMPARISON: CR XR hip LT 2-3V wo/w pel* [id number] 05/06/2022 11:39 AM FINDINGS: Bones/joints: Unremarkable. No acute fracture. Soft tissues: Unremarkable. XR/XR hip LT 2-3V wo/w pel* [id number] IMPRESSION: No acute findings.
--- NOTE | 2022-05-15 11:41 | XRR_ITS ---
PROCEDURE INFORMATION: Exam: XR Left Tibia and Fibula Exam date and time: 05/15/2022 11:57 AM Age: 71 years old Clinical indication: Injury or trauma; Other: Not specified; Blunt trauma; Lower leg; Left TECHNIQUE: Imaging protocol: Radiologic exam of the Left tibia and fibula. Views: 2 views. COMPARISON: CR XR tibia fibula LT 2V [id number] 12/06/2021 12:09 PM FINDINGS: Bones/joints: Negative for acute bony abnormality. Soft tissues: Normal. XR/XR tibia fibula LT 2V [id number] IMPRESSION: No acute findings.
--- NOTE | 2022-05-15 11:41 | ED_ITS ---
HPI - Extremity Problem General: Chief complaint: Extremity Problem,Nontraumatic Stated complaint: left leg pain Time Seen by Provider: 05/15/22 11:16 Source: patient and family Mode of arrival: ambulatory Limitations: no limitations History of Present Illness: Patient is a nice 71-year-old male who presents to ED today with a complaint of lower back and left lower extremity pain. 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 He states a few days later he then had an incident where he was struck with a tree branch and fell backwards onto the back/buttocks. He states during that incident he also had a log roll on top of his left lower extremity (tib/fib). He states over the past 2 weeks he has had pain to his lower back that seems to radiate into the left hip. He has been having intermittent numbness and paresthesia sensations to the left lower extremity but feels like these have improved. He is complaining of pain to the left knee and tib-fib region. Patient has continued to be ambulatory. He does not complain of any groin or saddle like paresthesias. He is not having any urinary retention (has chronic difficulty with stream due to BPH) or bowel incontinence. MD Complaint: extremity pain and other (back pain) Onset (ago): day(s) Pain Consistency: constant Location: left and lower extremity Quality: burning, aching and constant Radiation: distal Relieving factors: nothing Associated symptoms: Deny chest pain, fever(s) or rash Review of Systems Const: Denies: fever(s), chills, body aches, fatigue or malaise Card: Denies: chest pain Resp: Denies: dyspnea GI: Denies: abdominal pain : Denies: flank pain, urinary incontinence or hematuria Musc: Reports: back pain, extremity pain and joint pain; Denies: neck pain, extremity swelling, joint swelling, joint redness, joint warmth, joint stiffness, limited range of motion, muscle cramps, muscle weakness or decrease in muscle mass Skin/Breast: Denies: rash Neuro: Reports: numbness in extremities (improved now); Denies: headache(s), weakness in extremities or difficulty walking [facility] ED PFSH: Medical History BPH with obstruction/lower urinary tract symptoms History of recurrent UTI (urinary tract infection) Syncope Family History Father , AT AGE 86 UNKNOWN CAUSE No problems noted. Social History Smoking and tobacco status: never smoked Alcohol intake: never Adopted: No Caregiver/support person: No Lives independently: No Household members: spouse Marital status: Current occupational status: employed History of recent travel: No Current gender identity: Male Physical Exam Const: COMMON NORMALS: no acute distress, average body habitus, patient oriented x3, no limitations, healthy appearing, alert and well nourished GENERAL APPEARANCE: cooperative ORIENTATION/CONSCIOUSNESS: Yes awake, Yes oriented to person, Yes oriented to place and Yes oriented to time HENMT: COMMON NORMALS: normocephalic and atraumatic HEAD & SCALP: normal to inspection, normocephalic and atraumatic GI: COMMON NORMALS: Normal to inspection, nondistended, normoactive bowel sounds present, Soft to palpation, non-tender and no masses PALPATION: Yes Soft to palpation Back/Pelvis: THORACIC SPINE/UPPER BACK: Yes normal to inspection, Yes thoracic ROM normal, No thoracic spinal tenderness, No paraspinal muscle tenderness and No paraspinal muscle spasm LUMBAR SPINE/LOWER BACK: No ROM limited, Yes paraspinal muscle tenderness Lumbar paraspinal muscle tenderness: left and No paraspinal muscle spasm PELVIS: Yes buttocks normal SACROILIAC JOINTS: Yes SI joint(s) abnormal SI joint details: tender to palpation (L) SACRUM: no tenderness COCCYX: no tenderness Extremity: COMMON NORMALS: normal to inspection, full ROM, capillary refill normal, no joint enlargement, no clubbing, cyanosis or edema, no calf tenderness and no pedal edema GENERAL: Yes normal exam except as noted LEFT LOWER EXTREMITY: Yes knee joint and Yes lower leg OTHER: TTP to L knee/tib fib region w/o any appreciated swelling or bony deformities; easily palpable DP/PT pulses; extremities are cool to touch but equal bilaterally and again with easily found pulses; sensation intact Neuro: COMMON NORMALS: patient oriented x3, moves all extremities, no focal motor deficits, no sensory deficits noted and gait normal SENSORIUM/ORIENTATION: Yes alert, Yes oriented to person, Yes oriented to place and Yes oriented to time MOTOR EXAM: 5/5 motor strength present throughout DEEP TENDON REFLEXES: Right patellar reflex intensity grade: 2+ and Left patellar reflex intensity grade: 2+ Skin: COMMON NORMALS: no rashes or lesions noted GENERAL SKIN EXAM: no rashes or lesions noted Course Vital Signs: Vital signs: Vital Signs Temperature 97.6 F 05/15/22 12:12 Pulse Rate 78 05/15/22 13:24 Respiratory Rate 16 05/15/22 13:24 Blood Pressure 87/54 05/15/22 13:24 Pulse Oximetry 95 05/15/22 13:24 Oxygen Delivery Me thod 05/15/22 13:24 MDM - Extremity (Nontraumatic) Medical Decision Making I do not have any concern for vascular compromise as history and physical exam does not suggest a DVT. He has easily palpable pulses throughout his extremity. XRs of his hip, knee, tib/fib are negative. Nothing on physical exam suggestive of a compartment syndrome. CT of his lumbar spine does show a large posterior left lateral disc herniation at L4-L5 with impingement on the neuro sac. This radicular distribution could certainly fit patient's symptomology. He is not having any acute neurologic deficits at this time. I will get him an appointment to see Dr. Cunningham this week for re-evaluation/treatment options. We will place him on steroids, muscle relaxers, and have him start taking anti- inflammatories at home. He has left over oxycodone that he states he can/will take for severe pain. Lab Data Radiology Impressions Hip/Pelvis X-Ray 05/15/22 11:41 IMPRESSION: No acute findings. Knee X-Ray 05/15/22 11:41 IMPRESSION: No acute findings. Lumbar Spine CT 05/15/22 11:41 IMPRESSION: 1. Large posterior left lateral disc herniation at L4-5. There is impingement along the left lateral margin of the neural sac and also upon the exiting left nerve root at this level. 2. Posterior broad-based disc bulging at L5-S1. Bulging disc material narrows the left neural foramen at this level. 3. Posterior disc bulging at L3-4 which causes mild to moderate central spinal canal stenosis. 4. Degenerative changes, mild scoliosis. 5. Cholelithiasis. Tibia/Fibula X-Ray 05/15/22 11:41 IMPRESSION: No acute findings. Discharge Plan Discharge Patient Disposition: Home Clinical Impression: Herniated lumbar intervertebral disc Condition: Stable Prescriptions: New methocarbamol 500 mg tablet 1,000 mg PO Q8H Qty: 30 0RF prednisone 10 mg tablet 60 mg PO DAILY 5 Days Qty: 30 0RF No Action Immune Plus Gummies 2 cap PO DAILY alfuzosin 10 mg tablet extended release 24 hr 10 mg PO QAM ibuprofen 800 mg tablet 800 mg PO TID PRN (Reason: Pain) diclofenac sodium 75 mg tablet,delayed release (DR/EC) 75 mg PO Q12H PRN (Reason: pain) Qty: 20 0RF tizanidine 4 mg capsule 4 mg PO TID PRN (Reason: muscle spasticity) Qty: 20 0RF prednisone 20 mg tablet 20 mg PO TID Qty: 15 0RF Rx Instructions: 1 p.o. 3 times daily x3 days, 1 p.o. twice daily x2 days, 1 p.o. daily x2 days Discharge Orders: Discharge ED (Routine); Ordered 05/15/22 Ordered By: Susan Wan Referrals: Hernan Cunningahm DO [Physician] - Lin,VERONA Mazariegos [Primary Care Provider] - Activity Restrictions/Additional Instructions: As we have discussed you should hear from case management tomorrow to set you up with your follow-up appointment with Dr. Cunningham. You need to return to the emergency department for worsening or uncontrollable back or leg pain, inability to urinate, fecal incontinence, inability to ambulate or any other concerns you may have. I hope you begin to feel better soon. 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
--- NOTE | 2022-05-15 11:41 | CT_ITS ---
WS: [id number] Exam: CT lumbar spine wo con* [id number] Date/Time of Exam: 05/15/2022 12:07 PM Reason For Exam: numbness/pain back/L LE DLP: 581.[address] scans at [facility] use at least one of these dose optimization techniques: automated e xposure control; mA and/or kV adjustment per patient size (includes targeted exams where dose is matc hed to clinical indication); or iterative reconstruction. Large posterior left lateral disc herniation at L4-5. There is impingement along the left margin of t he neural sac and also upon the exiting left nerve root at this level. There is also a posterior broa d-based bulging of the L5-S1 disc. Bulging disc material narrows the left neural foramen at this leve l. Also noted is posterior disc bulging at L3-4 which causes mild to moderate central spinal canal st enosis. No foraminal stenosis at this level. No other levels of significant disc protrusion or spinal canal stenosis. There are degenerative vacuum disks noted at L1-2, L2-3, L3-4 and L5-S1. No sign of fracture or bone destruction. Moderate facet DJD at all levels. Mild levoscoliosis. Paraspinal and re troperitoneal soft tissue structures are unremarkable. Several faceted stones are noted in the partia lly visualized gallbladder. CT/CT lumbar spine wo con* [id number] IMPRESSION: 1. Large posterior left lateral disc herniation at L4-5. There is impingement a long the left lateral margin of the neural sac and also upon the exiting left n erve root at this level. 2. Posterior broad-based disc bulging at L5-S1. Bulging disc material narrows t he left neural foramen at this level. 3. Posterior disc bulging at L3-4 which causes mild to moderate central spinal canal stenosis. 4. Degenerative changes, mild scoliosis. 5. Cholelithiasis.
--- NOTE | 2022-05-15 11:41 | XRR_ITS ---
PROCEDURE INFORMATION: Exam: XR Left Knee Exam date and time: 05/15/2022 11:57 AM Age: 71 years old Clinical indication: Injury or trauma; Other: Not specified; Blunt trauma; Knee; Left TECHNIQUE: Imaging protocol: Radiologic exam of the Left knee. Views: 3 views. COMPARISON: CR XR knee LT 3V* [id number] 12/06/2021 12:09 PM FINDINGS: Bones/joints: Normal. Soft tissues: Normal. XR/XR knee LT 3V* [id number] IMPRESSION: No acute findings.
[2022-05-15 12:12] VITALS: BP 96/56; PULSE 79; RESP 18; TEMP 36.4; O2SAT 96
[2022-05-15] MEDS: ondansetron 2 mg/ML SDV 2 mL 4 MG IM (12:29)
[2022-05-15 12:30] VITALS: RESP 18
[2022-05-15] MEDS: morphine 4 mg/mL SDV 1 mL IM (12:30)
[2022-05-15] MEDS: orphenadrine 30 mg/mL Inj 2 mL 60 MG IM (12:31)
[2022-05-15 13:24] VITALS: BP 87/54; PULSE 78; RESP 16; O2SAT 95
[2022-05-15] MEDS: dexamethasone 10 mg/mL INJ 8 MG IM (13:39)
--- NOTE | 2022-05-16 14:11 | DCPLANNER ---
Addendum entered by Barbie Lincoln 06/02/22 13:02: branch operations manager received the following message from the ortho clinic regarding follow up appointment; Pt states he will be following up with his own doctor Original Note: branch operations manager had message to schedule a follow up appointment for patient with ortho. branch operations manager sent patients information to the front office staff at ortho. Patients information will be printed and reviewed. Clinic will call patient with appointment information.
== END 2022-05-15 13:52 | disposition home or self-care (01) ==
PROVIDERS: Emergency Provider Physician Assistant; PCP Nurse Practitioner Family
DX: M51.26 Other intervertebral disc displacement, lumbar region (principal)
CPT/HCPCS: 72131; 73502; 73562; 73590; 96372; 99285; J1100; J2270; J2360; J2405

== ENCOUNTER 2022-10-02 11:17 | Outpatient (CLI) | payer OTHER, SELFPAY ==
[2022-10-02 12:15] LABS: Prostate Specific AG Urology 0.99 ng/mL (0-4)
== END 2022-10-02 11:18 | disposition home or self-care (01) ==
LOC: LAB 11:20
PROVIDERS: PCP Nurse Practitioner Family; Visit Provider Urology
DX: N13.8 Other obstructive and reflux uropathy (principal); N40.1 Benign prostatic hyperplasia with lower urinary tract symptoms
CPT/HCPCS: 36415; 84153

== ENCOUNTER → 2022-10-03 09:19 | Outpatient (BNVA) | payer OTHER, SELFPAY | PROVIDERS: PCP Nurse Practitioner Family; Visit Provider Urology | DX: N40.1 Benign prostatic hyperplasia with lower urinary tract symptoms (principal); N13.8 Other obstructive and reflux uropathy; Z87.440 Personal history of urinary (tract) infections; Z12.5 Encounter for screening for malignant neoplasm of prostate | CPT/HCPCS: 81003 ==

== ENCOUNTER → 2025-05-07 10:25 | Outpatient (BNVA) | payer MEDICARE, OTHER, SELFPAY | PROVIDERS: PCP Nurse Practitioner Family; Visit Provider Podiatrist Foot & Ankle Surgery | DX: Z98.890 Other specified postprocedural states (principal) | CPT/HCPCS: 99213 ==